=== PATIENT | female | born 1955 | race Caucasian/White ===

== ENCOUNTER 2019-09-30 08:00 | Outpatient (CLI) | payer OTHER, SELFPAY ==
--- NOTE | ~2019-09-30 | XR_ITS ---
EXAMINATION: XR shoulder LT min 2V DATE: 09/30/2019 08:37 INDICATION: Left shoulder pain. TECHNIQUE: 4 views of left shoulder were obtained. COMPARISON: None. FINDINGS: Bone alignment is normal. No fracture. There is mild osteoarthritis of glenohumeral joint a nd acromioclavicular joint. IMPRESSION: 1. Mild polyarticular osteoarthritis. Reviewed, dictated and finalized at location A. [facility]
--- NOTE | ~2019-09-30 | XR_ITS ---
EXAMINATION: XR elbow LT min 3V DATE: 09/30/2019 08:37 INDICATION: Left elbow pain. TECHNIQUE: 4 views of left elbow were obtained. COMPARISON: None. FINDINGS: Bone alignment is normal. No fracture. Joint spaces are well maintained. There is no elbow joint effusion. IMPRESSION: 1. Normal left elbow. Reviewed, dictated and finalized at location A. PACKER IMPRESSION: 1. Normal left elbow.
== END 2019-09-30 08:01 | disposition home or self-care (01) ==
PROVIDERS: PCP Family Medicine; Visit Provider Family Medicine
DX: M79.602 Pain in left arm (principal); M25.512 Pain in left shoulder; M19.012 Primary osteoarthritis, left shoulder
CPT/HCPCS: 73030; 73080

== ENCOUNTER 2020-06-08 08:22 | Outpatient (CLI) | payer OTHER, SELFPAY ==
--- NOTE | ~2020-06-08 | MM_ITS ---
EXAMINATION: MM screening gilson BI w leticia HISTORY: Screening TECHNIQUE: Craniocaudal and mediolateral oblique 3-D tomosynthesis images were obtained and synthetic 2-D images were generated. CAD analysis was submitted and interpreted. COMPARISON: Comparison to multiple prior studies sequentially, with oldest reviewed study dated 12/11. BREAST PARENCHYMAL COMPOSITION: The breasts are heterogeneously dense, which may obscure small masses . FINDINGS: There is no evidence of suspicious mass, calcification, or architectural distortion to sugg est malignancy in either breast. There has been no suspicious interval change. IMPRESSION: 1. No mammographic evidence of malignancy. 2. Recommend routine screening mammography in one year. BI-RADS Category 1: Negative Reviewed, dictated and finalized at location A.
--- NOTE | ~2020-06-08 | DEXA_ITS ---
Bone Density Report Name: Gladys Craven Age: 64 Sex: Female Ethnicity: White Date of : 1955 Indication: postmenopausal osteoporosis; monitoring treatment; inflammatory bowel disease; Referring Provider: COLLINS CHINCHILLA Study: Bone densitometry was performed. Exam Date: June 08, 2020 Accession number: [id number] Bone Density: Region BMD T-score Z-score Classification AP Spine (L1-L4) 0.920 -1.2 0.6 Osteopenia Femoral Neck (Left) 0.587 -2.4 -0.8 Osteopenia Total Hip (Left) 0.647 -2.4 -1.2 Osteopenia Total Hip Bilateral Avg 0.637 -2.5 -1.3 Osteoporosis Femoral Neck (Right) 0.560 -2.6 -1.1 Osteoporosis Total Hip (Right) 0.625 -2.6 -1.4 Osteoporosis World Health Organization criteria for BMD impression classify patients as: Normal (T-score at or above -1.0), Osteopenia (T-score between -1.0 and -2.5), or Osteoporosis (T-score at or below -2.5). 10-year Fracture Risk: FRAX not reported because: Some T-score for Spine Total or Hip Total or Femoral Neck at or below -2.5 Treated for osteoporosis Previous Exams: Region Exam Age BMD T-score BMD Change BMD Change Date g/cm2 vs Baseline vs Previous AP Spine(L1-L4) 06/08/2020 64 0.920 -1.2 -0.035(-3.7%)# 0.001(0.1%) 01/09/2019 63 0.919 -1.2 -0.036(-3.8%)# 0.017(1.9%) 01/06/2016 60 0.902 -1.3 -0.053(-5.6%)# 0.039(4.5%)# 11/28/2012 56 0.863 -1.7 -0.092(-9.6%)# -0.078(-8.3%)# 10/27/2010 54 0.941 -1.0 -0.014(-1.5%) -0.014(-1.5%) 10/04/2008 52 0.955 -0.8 Total Hip(Left) 06/08/2020 64 0.647 -2.4 -0.069(-9.6%)# 0.001(0.1%) 01/09/2019 63 0.646 -2.4 -0.069(-9.7%)# -0.016(-2.4%) 01/06/2016 60 0.662 -2.3 -0.053(-7.5%)# -0.026(-3.8%)# 11/28/2012 56 0.688 -2.1 -0.027(-3.8%)# -0.005(-0.7%)# 10/27/2010 54 0.693 -2.0 -0.022(-3.1%) -0.022(-3.1%) 10/04/2008 52 0.716 -1.9 Total Hip(Right) 06/08/2020 64 0.625 -2.6 -0.056(-8.3%)# 0.028(4.7%)* 01/09/2019 63 0.597 -2.8 -0.084(-12.4%) -0.031(-5.0%)* 01/06/2016 60 0.628 -2.6 -0.053(-7.8%)# -0.010(-1.6%)# 11/28/2012 56 0.638 -2.5 -0.043(-6.3%)# -0.043(-6.3%)# 10/27/2010 54 0.681 -2.1 0.000(0.0%) 0.000(0.0%) 10/04/2008 52 0.681 -2.1 *Denotes significance at 95% confidence level, LSC for AP Spine = 0.022 g/cm2, LSC for Total Hip = 0.027 g/cm2 Clinical Information Provided by Patient: Smokes Is being treated for osteoporosis Has used the following medications: Boniva (i.e. ibandronate), Vitamin D, Ca
== END 2020-06-08 08:23 | disposition home or self-care (01) ==
LOC: ANHIMG 08:25
PROVIDERS: PCP Family Medicine Sports Medicine; Visit Provider Obstetrics & Gynecology
DX: Z12.31 Encounter for screening mammogram for malignant neoplasm of breast (principal); Z13.1 Encounter for screening for diabetes mellitus; M81.0 Age-related osteoporosis without current pathological fracture
CPT/HCPCS: 77063; 77067; 77080

== ENCOUNTER 2021-07-04 07:27 | Outpatient (CLI) | payer OTHER, SELFPAY ==
--- NOTE | ~2021-07-04 | MM_ITS ---
EXAMINATION: MM screening gilson BI w leticia HISTORY: Screening mammogram TECHNIQUE: Craniocaudal and mediolateral oblique 3-D tomosynthesis images were obtained and synthetic 2-D images were generated. CAD analysis was submitted and interpreted. COMPARISON: 06/08/2020, 05/20/2019, 04/12/2018 bilateral screening mammogram examinations BREAST PARENCHYMAL COMPOSITION: There are scattered areas of fibroglandular density. FINDINGS: There is no evidence of suspicious mass, calcification, or architectural distortion to sugg est malignancy in either breast. There has been no suspicious interval change. IMPRESSION: 1. No mammographic evidence of malignancy. 2. Recommend routine screening mammography in one year. BI-RADS Category 1: Negative Reviewed, dictated and finalized at location A. 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
== END 2021-07-04 07:28 | disposition home or self-care (01) ==
LOC: ANHIMG 07:29
PROVIDERS: PCP Family Medicine Sports Medicine; Visit Provider Obstetrics & Gynecology
DX: Z12.31 Encounter for screening mammogram for malignant neoplasm of breast (principal)
CPT/HCPCS: 77063; 77067

== ENCOUNTER 2022-03-18 07:36 | Outpatient (CLI) | payer OTHER, SELFPAY ==
[2022-03-18 19:38] LABS: Basophils Percent Auto 0.6 % (0.2-1.2); Eosinophils Absolute Auto 0.1 K/mm3 (0-0.3); Eosinophils Percent Auto 0.8 % (0-4.4); Hematocrit 44.8 % (37.0-47.0); Hemoglobin 15.1 g/dL (12.0-15.0); Immature Granulocyte Absolute 0.02 K/mm3 (0.00-0.031); Immature Granulocyte Percent A 0.3 % (0-0.5); Lymphocytes Percent Auto 21.4 % (18.3-44.2); Mean Corpuscular HGB Conc 33.7 g/dl (32-36); Mean Corpuscular Hemoglobin 32.1 pg (26-34); Mean Corpuscular Volume 95.3 fl (80-100); Mean Platelet Volume 9.1 fl (7.4-10.4); Monocytes Absolute Auto 0.4 K/mm3 (0.1-0.6); Monocytes Percent Auto 5.5 % (2.6-8.5); Neutrophils Absolute Auto 4.7 K/mm3 (1.3-6.7); Neutrophils Percent Auto 71.4 % (45.5-73.1); Platelet Count Result 487 k/mm3 (150-375); Red Cell Distribution Width 12.3 % (11.5-14.5); White Blood Count 6.6 K/mm3 (4.5-10.0)
[2022-03-18 19:50] LABS: Appearance Urine Clear (Clear); Bilirubin Urine Negative (Negative); Blood Urine Negative (Negative); Color Urine Yellow (Yellow); Glucose Urine UA Negative (Negative); Ketones Urine Negative (Negative); Leukocyte Esterase Ur Trace LEU/UL (NEGATIVE); Nitrate Urine Negative (Negative); Protein Urine Negative (Negative); Specific Grav Ur 1.025 (1.001-1.035); Urobilinogen Urine 0.2 mg/dL (<2.0); pH Urine 5.5 (5.0-9.0)
[2022-03-18 19:57] LABS: Mucus Urine Rare /lpf; RBC Urine 0-2 /hpf (0-2); Squamous Epithelial Cell Urine Rare /hpf (Few)
[2022-03-18 19:58] LABS: Add Urine Microscopic? YES
[2022-03-18 20:59] LABS: Hemoglobin A1C 5.4 % (<5.7)
[2022-03-18 21:10] LABS: Alanine Aminotransferase 22 U/L (6-35); Alkaline Phosphatase 65 U/L (38-126); Anion Gap 12 mmol/L (8-16); Aspartate Amino Transferase 55 U/L (14-36); Bilirubin,Total 0.6 mg/dL (0.2-1.3); Blood Urea Nitrogen 13 mg/dL (7-17); CRP < 0.5 mg/dL (<1.0); Calcium 10.2 mg/dL (8.4-10.2); Carbon Dioxide 26 mmol/L (22-30); Chloride 104 mmol/L (98-107); Cholesterol 260 mg/dL (0-200); Estimated Glomerular Filt Rate > 60; Glucose 145 mg/dL (65-110); HDL Direct 90 mg/dL; Sodium 142 mmol/L (137-145); Triglycerides 213 mg/dL (<150)
[2022-03-18 21:20] LABS: LDL Cholesterol Direct 111 mg/dL
[2022-03-18 22:14] LABS: Parathyroid Intact 41.2 pg/mL (7.5-53.5)
[2022-03-18 22:19] LABS: Folic Acid > 20.0 ng/mL (2.76->20)
== END 2022-03-18 07:37 | disposition home or self-care (01) ==
LOC: ANHBWCLAB 07:41
PROVIDERS: PCP Family Medicine Sports Medicine; Visit Provider Family Medicine Sports Medicine
DX: Z00.00 Encounter for general adult medical examination without abnormal findings (principal); R00.0 Tachycardia, unspecified; R79.9 Abnormal finding of blood chemistry, unspecified
CPT/HCPCS: 36415; 80053; 80061; 81001; 82310; 82607; 82746; 83036; 83970; 84443; 85025; 86140

== ENCOUNTER 2022-09-17 15:02 | Outpatient (CLI) | payer OTHER, SELFPAY ==
--- NOTE | ~2022-09-17 | MM_ITS ---
EXAMINATION: MM screening gilson BI w leticia HISTORY: Screening mammogram TECHNIQUE: Craniocaudal and mediolateral oblique 3-D tomosynthesis images were obtained and synthetic 2-D images were generated. CAD analysis was submitted and interpreted. COMPARISON: 07/04/2021, 06/08/2020, 05/20/2019 bilateral screening mammogram examinations BREAST PARENCHYMAL COMPOSITION: There are scattered areas of fibroglandular density. FINDINGS: There is no evidence of suspicious mass, calcification, or architectural distortion to sugg est malignancy in either breast. There has been no suspicious interval change. IMPRESSION: 1. No mammographic evidence of malignancy. 2. Recommend routine screening mammography in one year. BI-RADS Category 1: Negative Reviewed, dictated and finalized at location A. ISTS
== END 2022-09-17 15:03 | disposition home or self-care (01) ==
PROVIDERS: PCP Nurse Practitioner Family; Visit Provider Obstetrics & Gynecology
DX: Z12.31 Encounter for screening mammogram for malignant neoplasm of breast (principal)
CPT/HCPCS: 77063; 77067

== ENCOUNTER 2022-10-18 07:32 | Outpatient (CLI) | payer OTHER, SELFPAY ==
[2022-10-18 18:33] LABS: Basophils Absolute Auto 0.1 K/mm3 (0.0-0.1); Eosinophils Absolute Auto 0.1 K/mm3 (0-0.3); Eosinophils Percent Auto 2.4 % (0-4.4); Hematocrit 43.4 % (37.0-47.0); Hemoglobin 14.4 g/dL (12.0-15.0); Immature Granulocyte Absolute 0.01 K/mm3 (0.00-0.031); Immature Granulocyte Percent A 0.2 % (0-0.5); Lymphocytes Absolute Auto 1.78 K/mm3 (0.9-3.2); Lymphocytes Percent Auto 30.7 % (18.3-44.2); Mean Corpuscular HGB Conc 33.2 g/dl (32-36); Mean Corpuscular Hemoglobin 32.2 pg (26-34); Mean Corpuscular Volume 97.1 fl (80-100); Mean Platelet Volume 9.2 fl (7.4-10.4); Monocytes Absolute Auto 0.4 K/mm3 (0.1-0.6); Monocytes Percent Auto 7.3 % (2.6-8.5); Neutrophils Absolute Auto 3.4 K/mm3 (1.3-6.7); Neutrophils Percent Auto 58.4 % (45.5-73.1); Platelet Count Result 453 k/mm3 (150-375); Red Blood Count 4.47 M/mm3 (4.2-5.4); Red Cell Distribution Width 12.3 % (11.5-14.5); White Blood Count 5.8 K/mm3 (4.5-10.0)
[2022-10-18 19:03] LABS: Alanine Aminotransferase 30 U/L (6-35); Albumin Level 5.1 g/dL (3.5-5.1); Alkaline Phosphatase 60 U/L (38-126); Anion Gap 6 mmol/L (8-16); Aspartate Amino Transferase 41 U/L (14-36); Bilirubin,Total 0.5 mg/dL (0.2-1.3); Blood Urea Nitrogen 15 mg/dL (7-17); Calcium 10.1 mg/dL (8.4-10.2); Carbon Dioxide 31 mmol/L (22-30); Chloride 101 mmol/L (98-107); Cholesterol 266 mg/dL (0-200); Estimated Glomerular Filt Rate > 60; Glucose 110 mg/dL (65-110); HDL Direct 102 mg/dL; Potassium 4.1 mmol/L (3.4-5.0); Sodium 138 mmol/L (137-145); Triglycerides 161 mg/dL (<150)
[2022-10-18 19:20] LABS: LDL Cholesterol Direct 113 mg/dL
[2022-10-18 20:14] LABS: Hemoglobin A1C 5.3 % (<5.7)
== END 2022-10-18 07:33 | disposition home or self-care (01) ==
LOC: ANHBWCLAB 07:33
PROVIDERS: PCP Family Medicine; Visit Provider Nurse Practitioner Family
DX: R73.01 Impaired fasting glucose (principal); R74.8 Abnormal levels of other serum enzymes; D51.9 Vitamin B12 deficiency anemia, unspecified; R79.89 Other specified abnormal findings of blood chemistry; E78.5 Hyperlipidemia, unspecified
CPT/HCPCS: 36415; 80053; 80061; 83036; 85025

== ENCOUNTER 2023-03-05 15:39 | Emergency (ER) | payer OTHER, SELFPAY ==
--- NOTE | ~2023-03-05 | XR_ITS ---
EXAMINATION: XR knee RT 3V DATE: 03/05/2023 17:01 INDICATION: Right knee pain and swelling. TECHNIQUE: 3 views of right knee were obtained. COMPARISON: None. FINDINGS: Bone alignment is normal. No fracture. There is mild tricompartmental osteoarthritis. There is a moderate-sized knee joint effusion. There are dystrophic calcifications of the menisci and join t capsule. IMPRESSION: 1. Mild right knee osteoarthritis. 2. Moderate-sized right knee joint effusion. Reviewed, dictated and finalized at location E.
[2023-03-05 16:01] VITALS: BP 154/91; PULSE 107; RESP 18; TEMP 36.6; O2SAT 100
[2023-03-05 17:16] VITALS: BP 129/81; PULSE 84; RESP 16; O2SAT 100
--- NOTE | 2023-03-05 17:49 | ED.LOWEXIN ---
HPI - Extremity Injury (Lower) General Chief Complaint: Extremity Injury, Lower Stated Complaint: right knee pain Time Seen by Provider: 03/05/23 17:05 History of Present Illness HPI Narrative: 67-year-old female reports for evaluation of right knee pain x3 days. Patient states 3 days ago, she was working at the health department and unloading a truck, she was going in and out of the truck multiple times and felt fine but later developed pain in her knee. The pain is generalized, mostly in the lateral medial joint lines and superior knee with edema. She reports wearing a knee compression with improvement in pain. States she has been taking one 200 mg ibuprofen multiple times per day today without relief. Reports she called her doctor's office to try to get in for an appointment, but they did not have any openings within the next few days, so she came to the ED. She denies fever, knee warmth, numbness or tingling, pain in the rest of her extremities. Denies known injury or trauma. She does report having meniscal repairs on her bilateral knees in the 90s. Related Data Home Medications Medication Instructions Recorded Confirmed calcium-vitamin D3-vitamin K 500 tablet PO 07/14/19 01/28/23 mg-1,000 unit-40 mcg chewable tablet (Calcium Soft Chew) illldkdbbsmy-kzitsheh-exdciml-folic 1 tablet PO DAILY 07/14/19 01/28/23 acid 400 mcg-vit K1 20 mcg tablet (One-A-Day Women's 50 Plus) folic acid PO 04/19/22 01/28/23 vitamin B complex PO 04/19/22 01/28/23 Allergies Allergy/AdvReac Type Severity Reaction Status Date / Time morphine Allergy Unknown Chest pain Verified 03/05/23 15:42 Penicillins Allergy Unknown Unknown Verified 03/05/23 15:42 Sulfa (Sulfonamide Allergy Unknown Dermatitis Verified 03/05/23 15:42 Antibiotics) sulfanilamide Allergy Unknown Unknown Verified 03/05/23 15:42 Review of Systems Review of Systems: CONSTITUTIONAL: Denies fever, chills EYES: Denies visual changes, redness, or discharge. ENT: Denies rhinorrhea, congestion, sore throat, or otalgia. CARDIOVASCULAR: Denies chest pain, palpitations, or edema. RESPIRATORY: Denies cough or dyspnea. GASTROINTESTINAL: Denies abdominal pain, nausea, vomiting, or diarrhea. GENITOURINARY: Denies dysuria or hematuria. SKIN: Denies rash or itching. MUSCULOSKELETAL: See HPI NEUROLOGIC: Denies headache, numbness, dizziness, or weakness. PSYCHIATRIC: Denies anxiety or depression. [facility] Past Medical History Medical History Elevated liver enzymes Elevated platelet count H/O vaginal delivery History of colon disorder History of ulcerative colitis Hyperlipidemia Insomnia Right arm pain Right shoulder pain Screening for colon cancer Tobacco abuse Underweight Surgical History Surgical History H/O shoulder surgery H/O: knee surgery both x2 History of appendectomy History of cholecystectomy Status post right colon removal [place] teeth removed Family History Family History Father Carcinoma of colon Patient's father is , Onset Age: 75 Grandparent Family history of gout Mother Hypertension, Onset Age: 93 Social History Social History Smoking status: Current every day smoker Second hand tobacco smoke exposure: No Alcohol intake: current Alcohol use details: Occasionally Substance use: never Substance use type: does not use Lack of Transportation: No Lack of Food: Never True Current Housing: I Have Housing Concerned About Future Housing: No Difficulty Paying Gas/Electric Bills: No Difficulty Paying for Meds: No Currently Unemployed: No Education: Bachelor's Degree Difficulty w/ Childcare or Family Care: No Exam Narrative: GENERAL: Well-appearing, in no acute
[2023-03-05] MEDS: IBUPROFEN 600 MG TABLET PO (18:07)
== END 2023-03-05 18:12 | disposition home or self-care (01) ==
PROVIDERS: Emergency Provider Physician Assistant; PCP Family Medicine
DX: M25.561 Pain in right knee (principal); E78.5 Hyperlipidemia, unspecified; F17.200 Nicotine dependence, unspecified, uncomplicated
CPT/HCPCS: 73562; 99283; A9270

== ENCOUNTER 2023-04-17 07:26 | Outpatient (CLI) | payer OTHER, SELFPAY ==
[2023-04-17 18:17] LABS: Appearance Urine Clear (Clear); Bacteria Urine None Seen /hpf; Bilirubin Urine Negative (Negative); Blood Urine Negative (Negative); Color Urine Yellow (Yellow); Glucose Urine UA Negative (Negative); Ketones Urine Negative (Negative); Leukocyte Esterase Ur Trace LEU/UL (NEGATIVE); Nitrate Urine Negative (Negative); Non Pathogenic Casts 0-2; Protein Urine Negative (Negative); RBC Urine 0-2 /hpf (0-2); Specific Grav Ur 1.011 (1.001-1.035); Squamous Epithelial Cell Urine None seen /hpf (Few); Urobilinogen Urine 0.2 mg/dL (<2.0); WBC Urine 0-5 /hpf (0-3); pH Urine 5.5 (5.0-9.0)
[2023-04-17 18:25] LABS: Basophils Absolute Auto 0.1 K/mm3 (0.0-0.1); Basophils Percent Auto 0.9 % (0.2-1.2); Eosinophils Absolute Auto 0.1 K/mm3 (0-0.3); Eosinophils Percent Auto 2.6 % (0-4.4); Hematocrit 41.7 % (37.0-47.0); Hemoglobin 13.2 g/dL (12.0-15.0); Immature Granulocyte Absolute 0.01 K/mm3 (0.00-0.031); Immature Granulocyte Percent A 0.2 % (0-0.5); Lymphocytes Absolute Auto 1.73 K/mm3 (0.9-3.2); Lymphocytes Percent Auto 31.6 % (18.3-44.2); Mean Corpuscular HGB Conc 31.7 g/dl (32-36); Mean Corpuscular Hemoglobin 31.7 pg (26-34); Mean Corpuscular Volume 100.2 fl (80-100); Mean Platelet Volume 9.2 fl (7.4-10.4); Monocytes Absolute Auto 0.3 K/mm3 (0.1-0.6); Neutrophils Absolute Auto 3.2 K/mm3 (1.3-6.7); Neutrophils Percent Auto 58.7 % (45.5-73.1); Platelet Count Result 419 k/mm3 (150-375); Red Blood Count 4.16 M/mm3 (4.2-5.4); Red Cell Distribution Width 13.1 % (11.5-14.5); White Blood Count 5.5 K/mm3 (4.5-10.0)
[2023-04-17 18:26] LABS: Add Urine Microscopic? YES
[2023-04-17 19:53] LABS: Alanine Aminotransferase 26 U/L (6-35); Albumin Level 4.5 g/dL (3.5-5.1); Alkaline Phosphatase 54 U/L (38-126); Anion Gap 6 mmol/L (8-16); Aspartate Amino Transferase 61 U/L (14-36); Bilirubin,Total 0.6 mg/dL (0.2-1.3); Blood Urea Nitrogen 10 mg/dL (7-17); Calcium 9.9 mg/dL (8.4-10.2); Carbon Dioxide 31 mmol/L (22-30); Chloride 102 mmol/L (98-107); Cholesterol 227 mg/dL (0-200); Estimated Glomerular Filt Rate > 60; Glucose 95 mg/dL (65-110); HDL Direct 97 mg/dL; Sodium 139 mmol/L (137-145); Triglycerides 144 mg/dL (<150)
[2023-04-17 20:04] LABS: LDL Cholesterol Direct 99 mg/dL
[2023-04-17 20:04] LABS: Hemoglobin A1C 5.3 % (<5.7)
[2023-04-17 20:11] LABS: Vitamin D 25 Hydroxy 49.2 ng/mL
[2023-04-17 21:20] LABS: Folic Acid > 20.0 ng/mL (2.76->20)
== END 2023-04-17 07:27 | disposition home or self-care (01) ==
LOC: ANHBWCLAB 07:27
PROVIDERS: PCP Family Medicine; Visit Provider Nurse Practitioner Family
DX: D51.9 Vitamin B12 deficiency anemia, unspecified (principal); R74.8 Abnormal levels of other serum enzymes; E78.5 Hyperlipidemia, unspecified; Z00.00 Encounter for general adult medical examination without abnormal findings; M81.0 Age-related osteoporosis without current pathological fracture; R73.01 Impaired fasting glucose
CPT/HCPCS: 36415; 80053; 80061; 81001; 82306; 82607; 82746; 83036; 84443; 85025

== ENCOUNTER 2023-05-09 07:29 | Outpatient (CLI) | payer OTHER, SELFPAY ==
[2023-05-09 19:37] LABS: Alanine Aminotransferase 27 U/L (6-35); Albumin Level 4.7 g/dL (3.5-5.1); Alkaline Phosphatase 54 U/L (38-126); Aspartate Amino Transferase 62 U/L (14-36); Bilirubin,Total 0.6 mg/dL (0.2-1.3)
[2023-05-09 19:57] LABS: Hepatitis B Surface Antigen Negative (Negative)
[2023-05-09 20:03] LABS: HAV RESULT Negative (Negative); Hepatitis B Core IgM Result Negative (Negative)
[2023-05-09 20:14] LABS: Hepatitis C Virus Antibody Negative (Negative)
[2023-05-13 20:16] LABS: GGT 21 U/L (3-65)
== END 2023-05-09 07:30 | disposition home or self-care (01) ==
PROVIDERS: Visit Provider Nurse Practitioner Family
DX: R74.8 Abnormal levels of other serum enzymes (principal)
CPT/HCPCS: 36415; 80074; 80076; 82977

== ENCOUNTER → 2023-05-13 08:02 | Outpatient (CLI) | payer OTHER, SELFPAY ==
--- NOTE | ~2023-05-13 | US_ITS ---
Limited Abdominal Sonogram: Real-time sonographic imaging of the right upper quadrant was performed. Clinical History: Abnormal serum enzyme levels Findings: The liver appears normal with no evidence of mass lesion or bile duct dilatation. Main por jinny vein demonstrates normal direction of flow. The gallbladder is absent, compatible prior cholecyst ectomy. The common bile duct measures 3 mm. The visualized pancreas, aorta, and IVC are unremarkable . Impression: Status post cholecystectomy, otherwise unremarkable exam. Reviewed, dictated and finalized at location M. Impression: Status post cholecystectomy, otherwise unremarkable exam.
== END ==
PROVIDERS: PCP Nurse Practitioner Family; Visit Provider Nurse Practitioner Family
DX: R74.8 Abnormal levels of other serum enzymes (principal); Z90.49 Acquired absence of other specified parts of digestive tract
CPT/HCPCS: 76705

== ENCOUNTER 2023-05-14 14:38 | Outpatient (CLI) | payer OTHER, SELFPAY ==
--- NOTE | ~2023-05-14 | DEXA_ITS ---
Bone Density Report Name: FRAN DUNCAN Age: 67 Sex: Female Ethnicity: White Date of : 1955 Indication: postmenopausal; screening for osteoporosis; height loss; Referring Provider: COLLINS CHINCHILLA Study: Bone densitometry was performed. Exam Date: May 14, 2023 Accession number: [id number] Bone Density: Region BMD T-score Z-score Classification AP Spine(L1-L4) 0.892 -1.4 0.6 Osteopenia Femoral Neck (Left) 0.581 -2.4 -0.7 Osteopenia Total Hip (Left) 0.579 -3.0 -1.6 Osteoporosis Femoral Neck (Right) 0.545 -2.7 -1.0 Osteoporosis Total Hip (Right) 0.561 -3.1 -1.7 Osteoporosis Total Hip Mean 0.570 -3.1 -1.7 Osteoporosis World Health Organization criteria for BMD impression classify patients as: Normal (T-score at or above -1.0), Osteopenia (T-score between -1.0 and -2.5), or Osteoporosis (T-score at or below -2.5). 10-year Fracture Risk: FRAX not reported because: Some T-score for Spine Total or Hip Total or Femoral Neck at or below -2.5 Clinical Information Provided by Patient: Smokes Has used the following medications: Vitamin D, Calcium Patient maximum height was 65 Menopause Age: 52 Drinks caffeinated beverages Onset of menses at age 12 Number of children 2 Impression: The patient has osteoporosis, based on the Right Total Hip T-score. The patient has risk factors, including: smoking. Discussion: INCREASED RISK OF FRACTURE. BONE DENSITY IS UNDESIRABLY LOW AT ONE OR MORE SKELETAL SITES, CONSISTENT WITH POSTMENOPAUSAL OSTEOPOROSIS. This patient's lowest T-score meets the World Health Organization's (WHO) criteria for osteoporosis at one or more sites (T-score -2.5 or below). In untreated patients, the risk of osteoporotic fracture increases approximately two-fold for each 1.0 SD decrease in T-score. Low bone density is not the only risk factor for fracture; also consider factors such as patient's age, frailty or poor health, risk of falling, risk of injury, previous osteoporotic fracture, family history of osteoporosis, cigarette smoking, low body weight, etc. Not everyone with low bone mineral density has osteoporosis; osteomalacia and other metabolic bone disorders should also be considered. Patients who have osteoporosis should be evaluated for specific diseases and conditions (secondary causes) that may cause or contribute to bone loss. The [place] Association [employer] Clinical Endocrinologists (AACE) and National Osteoporosis Foundation (NOF) recommend pharmacologic intervention for all postmenopausal women whose T-score is in this range. The patient should follow a healthful lifestyle (good nutrition with adequate calcium and vitamin D, and appropriate weight-bearing exercise). Follow-Up: Consider a repeat BMD and Vertebral Fracture Assessment (VFA) exam in 2 years or jourdan
== END 2023-05-14 14:39 | disposition home or self-care (01) ==
LOC: ANHIMG 14:40
PROVIDERS: PCP Nurse Practitioner Family; Visit Provider Obstetrics & Gynecology
DX: M81.0 Age-related osteoporosis without current pathological fracture (principal)
CPT/HCPCS: 77080

== ENCOUNTER 2023-11-14 15:28 | Outpatient (CLI) | payer OTHER, SELFPAY ==
--- NOTE | ~2023-11-14 | MM_ITS ---
EXAMINATION: MM screening gislon BI w leticia HISTORY: Screening TECHNIQUE: Craniocaudal and mediolateral oblique 3-D tomosynthesis images were obtained and synthetic 2-D images were generated. CAD analysis was submitted and interpreted. COMPARISON: Comparison to multiple prior studies sequentially, with oldest reviewed study dated 02/01. BREAST PARENCHYMAL COMPOSITION: Not dense: There are scattered areas of fibroglandular density. FINDINGS: There is no evidence of suspicious mass, calcification, or architectural distortion to sugg est malignancy in either breast. There has been no suspicious interval change. IMPRESSION: 1. No mammographic evidence of malignancy. 2. Recommend routine screening mammography in one year. BI-RADS Category 1: Negative Reviewed, dictated and finalized at location A.
== END 2023-11-14 15:29 | disposition home or self-care (01) ==
LOC: ANHIMG 15:33
PROVIDERS: PCP Obstetrics & Gynecology; Visit Provider Obstetrics & Gynecology
DX: Z12.31 Encounter for screening mammogram for malignant neoplasm of breast (principal)
CPT/HCPCS: 77063; 77067

== ENCOUNTER 2025-02-08 15:18 | Outpatient (CLI) | payer MEDICARE, SELFPAY ==
--- NOTE | ~2025-02-08 | MM_ITS ---
EXAMINATION: MM screening gilson BI w leticia HISTORY: Screening TECHNIQUE: Craniocaudal and mediolateral oblique 3-D tomosynthesis images were obtained and synthetic 2-D images were generated. CAD analysis was submitted and interpreted. COMPARISON: Comparison to multiple prior studies sequentially, with oldest reviewed study dated 04/2018. BREAST PARENCHYMAL COMPOSITION: Not dense: There are scattered areas of fibroglandular density. FINDINGS: There is no evidence of suspicious mass, calcification, or architectural distortion to sugg est malignancy in either breast. There has been no suspicious interval change. IMPRESSION: 1. No mammographic evidence of malignancy. 2. Recommend routine screening mammography in one year. BI-RADS Category 1: Negative Reviewed, dictated and finalized at location A.
--- OUTSIDE RECORDS SUMMARY | 2025-02-08 16:17 | XMS_ITS | Continuity of Care Document ---
Author Organization [facility] Address [address] [place] [address] [address] [place] [address] Phone Care Team Providers Care Port Captain Name Role Phone Prerna Avila Unavailable Unavailable Advance Directives Directive Yes / No Effective Date File Name No Information Encounters Encounter Description Practice Location Reason(s) For Visit Diagnoses Date Provider Providers Copied on Encounter [facility], [address] [place] [address] [address], [place], [place], [id number], [place] tel:[phone] [facility] [place] No Information [address] , [address], [place], [address], [place]. tel:[phone] Family History Family Member Type Diagnosis Age At Onset No Information Payers Payer name Insurance type Covered democrat ID Authoriza tion(s) [employer] SOI CI [id number] Social History Type Description Quantity Date Captured [...]
== END 2025-02-08 15:19 | disposition home or self-care (01) ==
PROVIDERS: PCP Nurse Practitioner Family; Visit Provider Nurse Practitioner Obstetrics & Gynecology
DX: Z12.31 Encounter for screening mammogram for malignant neoplasm of breast (principal)
CPT/HCPCS: 77063; 77067

== ENCOUNTER 2025-05-12 08:59 | Outpatient (CLI) | payer MEDICARE, SELFPAY ==
--- OUTSIDE RECORDS SUMMARY | 2000-10-20 08:00 | XMS_ITS | Continuity of Care Document ---
Author Organization [facility] Address [address] [place] [address] [address] [place] [address] Phone Care Team Providers Care Supervisor Hand Silvering Name Role Phone Prerna Avila Unavailable Unavailable Advance Directives Directive Yes / No Effective Date File Name No Information Encounters Encounter Description Practice Location Reason(s) For Visit Diagnoses Date Provider Providers Copied on Encounter [facility], [address] [place] [address] [address], [place], [place], [id number], [place] tel:[phone] [facility] (formerly [facility]) No Information [address] , [address], [place], [address], [place]. tel:[phone] Family History Family Member Type Diagnosis Age At Onset No Information Payers Payer name Insurance type Covered constitution party ID Authoriza tion(s) [employer] SOI CI [id number] Social History Type Description Quantity Date Captured Comments Sex Female Smoking Status No Information Chief Complaint And Reason For Visit No Information Reason For Referral Reason For Referral No Information History Of Present Illness Encounter Date Complaint History Of Prese nt Illness No Information Functional Status Date Functional Assessmen t No Information Instructions Date Instruction Additional Infor mation No Information Assessments Type Assessment Date No Information Patient Care Teams Name Effective Dates (start - stop) Status Members No Information
--- OUTSIDE RECORDS SUMMARY | 2025-05-12 09:28 | XMS_ITS | Clinical Summary ---
Author Organization [facility] Address [address] [place] [address] Care Team Providers Care Ad Operations Associate Name Role Phone Adan Arellano MD Primary Care Provider [phone] Allergies Active Allergy Reactions Criticality Noted Date Comments Morphine Other (See comments) Low Reaction: Other Opioids - Morphine Analogues Penicillins Rash Medium Sulfa (Sulfonamide Antibiotics) Hives Medium Medications ALPRAZolam (XANAX) 0.25 mg tablet Active calcium carbonate-vitam in D3 (CALCIUM 600 + D,3,) 1500 mg (600 mg elemental) -200 units per tablet TAKE 2 TABS QD AT THE SAME TIME FOR A TOTAL OF 1200MG QD. Active folic acid (FOLVITE) 400 mcg tablet TAKE 4 TABS QD FOR A TOTAL OF 1600MCG QD. Active lwhcoarc-tglh-K D-jjgrvud-bgfs (ONE-A-DAY WOMENS FORMULA) 18 mg iron-400 mcg-500 mg Ca tablet daily. Active denosumab (PROLIA) 60 mg/mL syringe Inject 1 mL (60 mg total) under the skin every 6 (six) months Active pseudoephedrine -ibuprofen 30-200 mg tablet tablet(s), 0 05/08/2022 Active CALCIUM ORAL Dispense as written 05/08/2022 Active ascorbic acid (VITAMIN C ORAL) 0 05/08/2022 Active vitamin b complex tablet every other day, 0 10/18/2024 Active lysine 1,000 mg tablet mg, every other day, 0 05/08/2022 Active multivit-min/ir on fum/folic ac (ONE-A-DAY WOMEN'S COMPLETE ORAL) 0 05/08/2022 Acti ve cholecalciferol 25 mcg (1,000 unit) tablet 1 tablet (1,000 Units total) 10/18/2024 Active Active Problems Problem Noted Date Diagnosed Date Sinusitis 11/19/2016 Nasal obstruction 11/19/2016 Hay fever 11/19/2016 Hypertrophy of nasal turbinates 11/19/2016 Chronic ulcerative colitis 10/18/2011 Overview (02/22/2025): Year of diagnosis: 2010. Year symptoms began: 2010. Phenotype: Inflammatory (B1) with perianal disease. Distribution: ileocolonic (L3) without upper GI disease (L4). Extraintestinal manifestations: none. Complications: none. Prior treatments: prednisone with other medications. Current treatment: none. 2011 - Colectomy ileal-anal anastomosis and J-pouch with ostomy reversal 2011 pouchoscopy 03/06/2015 was normal. Pouchoscopy 02/06/2018 showed healthy ileal pouch-anal anastomosis with normal patency. Pouchoscopy 03/22/2024 was normal. 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 12/02/2023 Encounters Date Type Department Care Team Description 02/22/2025 10:40 AM CDT Office Visit [facility] Medicine Gastroenterology [address] [place] [address] Harriet Carver MD Chronic ulcerative colitis with complication, unspecified location (HCC) (Primary Dx); H/O colectomy from Last 3 Months Immunizations Immunization Administration Dates Next Due Pneumococcal Conjugate PCV 13 10/26/2015 Surgical History Surgery Date Site/Laterality Comments WA APPENDECTOMY Appendectomy - (Added by TW Conv) WA CHOLECSTOT/CHOLECSTOST W/EXPL DRG/RMVL ST1 SPX Cholecystotomy - (Added by TW Conv) ROTATOR CUFF REPAIR Shoulder Surgery - (Added by TW Conv) COLON SURGERY Proctocolectomy w/ileostomy, J-pouch formation 09/05 ILEOSTOMY CLOSURE 11/24/2011 - 12/23/2011 KNEE ARTHROSCOPY Bilateral Medical History Medical History Date Comments Ulcerative colitis Family History Medical History Relation Name Comments Colon cancer Father Colon cancer - (Added by TW Conv) Glaucoma Mother Family history of glaucoma - (Added by TW Conv) Hypertension Mother Family history of hypertension - (Added by TW Conv) Relation Name Status Comments Father Mother Social History Tobacco Use Types Packs/Day Years Used Date Smoking Tobacco: Every Day Cigarettes Tobacco Cessation:Ready to Q uit: Not Asked; Counseling Given: Not Answered AUDIT-C Answer Date Recorded Q1: How often do you have a drink containing alc ohol? Monthly or less 03/22/2024 Q2: How many drinks containi ng alcohol do you have on a typical day when you are drinking? 1 or 2 03/22/2024 Q3: How often do you have si x or more drinks on one occasion? Never 03/22/2024 Personal Safety Answer Date Recorded Have you ever been in or are you currently in a harmful physical or emotional relationship or is someone making you feel afraid or unsafe? Denies 03/22/2024 Comments No Sex and Gender Information Value Date Recorded Sex Assigned at Not on file Legal Sex Female 3:54 AM [employer]GG [employer]ME[employer] Gender Identity Not on file Sexual Orientation Not on file Obstetrics History Last Filed Vital Signs Vital Sign Reading Time Taken Comments Blood Pressure 119/77 02/22/2025 10:15 AM CDT Pulse 97 02/22/2025 10:15 AM CDT Temperature 37.2 C (99 F) 02/22/2025 10:15 AM CDT Respiratory Rate 14 03/22/2024 11:1 4 AM CDT Oxygen Saturation 99% 02/22/2025 10: 15 AM CDT Inhaled Oxygen Concentration - - Weight 47.5 kg (104 lb 11.2 oz) 025 10:15 AM CDT Height 162.6 cm (5' 4) 02/22/2025 10:1 5 AM CDT Body Mass Index 17.97 02/22/2025 10:15 AM CDT Plan of Treatment Health Maintenance Due Date Last Done Comments Breast Cancer Screening-Mammogram 1954 Colon Cancer Screening-Colonoscopy 1954 Depression Screening 1954 Hepatitis C Screening 1954 Osteoporosis Screening-Bone Density Scan 1954 Zoster Vaccine (1 of 2) 2004 Pneumococcal vaccine 65+ (2 of 2 - PPSV23, PCV20, or PCV21) 12/21/2015 10/26/2015 Well Visit 65+ 12/28/2019 Fall Risk Assessment 03/22/2025 03/22/2024 Covid-19 Vaccine (6 - 2024-2 6 season) 2025 06/26/2023, 06/10/2022, 07/09/2021, Additional history exists Influenza Vaccine (#1) 2025 , 05/14/2022, 05/29/2021, Additional history exists DTaP/Tdap/Td Vaccine (3 - Td or Tdap) 01/11/2026 01/12/2016, 12/19/2005, 11/29/2002 Hepatitis B Screening Completed 05/25/1996 , 01/26/1996, 12/29/1995 Insurance [facility] MEDICARE ADV[facility]AGE [facility] [employer] MEDICARE Advance Directives For more information, please contact: [phone] * Full Code (Latest Code Status on File) Date Activated Date Inactivated Comments 02/06/2018 10:25 AM 02/06/2018 2:24 PM Care Teams Ad Operations Associate Relationship Specialty Start Date End Date Adan Arellano MD [address] [address] PCP - General 12/12/16
[2025-05-12 18:49] LABS: Hematocrit 43.1 % (37.0-47.0); Hemoglobin 14.2 g/dL (12.0-15.0); Immature Granulocyte Percent A 0.3 % (0-0.5); Lymphocytes Absolute Auto 1.82 K/mm3 (0.9-3.2); Mean Corpuscular HGB Conc 32.9 g/dl (32-36); Mean Corpuscular Hemoglobin 32.6 pg (26-34); Mean Corpuscular Volume 99.1 fl (80-100); Nucleated Red Blood Cells Absolute Auto 0.000 K/mm3 (0.0-0.012); Nucleated Red Blood Cells Perc 0.0 % (0.0-0.2); Platelet Count Result 430 k/mm3 (150-375); Red Blood Count 4.35 M/mm3 (4.2-5.4); White Blood Count 6.9 K/mm3 (4.5-10.0)
[2025-05-12 18:59] LABS: Alanine Aminotransferase 19 U/L (6-35); Albumin Level 4.5 g/dL (3.5-5.1); Alkaline Phosphatase 55 U/L (38-126); Anion Gap 5 mmol/L (4-12); Aspartate Amino Transferase 74 U/L (14-36); Bilirubin,Total 0.5 mg/dL (0.2-1.3); Blood Urea Nitrogen 10 mg/dL (7-17); Calcium 10.2 mg/dL (8.4-10.2); Carbon Dioxide 31 mmol/L (22-30); Chloride 105 mmol/L (98-107); Cholesterol 222 mg/dL (0-200); Estimated Glomerular Filt Rate > 60; Glucose 91 mg/dL (65-110); HDL Direct 102 mg/dL; Potassium 4.3 mmol/L (3.4-5.0); Sodium 141 mmol/L (137-145); Total Protein 7.6 g/dL (6.3-8.2); Triglycerides 127 mg/dL (<150)
[2025-05-12 19:08] LABS: Hemoglobin A1C 5.5 % (<5.7)
[2025-05-12 19:09] LABS: Add Urine Microscopic? YES; Appearance Urine Clear (Clear); Glucose Urine UA Negative (Negative); Leukocyte Esterase Ur 1+ LEU/UL (Negative); Nitrate Urine Negative (Negative); Non Pathogenic Casts 0-2; Specific Grav Ur 1.010 (1.001-1.035)
[2025-05-12 19:31] LABS: Thyroid Stimulating Hormone Reflex 3.020 uIU/mL (0.465-4.68)
[2025-05-12 20:01] LABS: Vitamin B12 511.0 pg/mL (239-931)
== END 2025-05-12 09:00 | disposition home or self-care (01) ==
LOC: ANHBWCLAB 09:03
PROVIDERS: PCP Nurse Practitioner Family; Visit Provider Nurse Practitioner Family
DX: E78.5 Hyperlipidemia, unspecified (principal); D51.9 Vitamin B12 deficiency anemia, unspecified; M81.0 Age-related osteoporosis without current pathological fracture; R73.01 Impaired fasting glucose
CPT/HCPCS: 36415; 80053; 80061; 81001; 82306; 82607; 83036; 84443; 85025